=== PATIENT | male | born 1955 | race Caucasian/White ===

== ENCOUNTER 2017-01-04 19:35 | Emergency (ER) | payer OTHER ==
--- NOTE | 2017-01-04 19:54 | EDPHY ---
H & P Stated Complaint: fever, chills, congestion, cough x 2 days Time Seen by Provider: 01/04/17 19:48 HPI/ROS: CHIEF COMPLAINT: Cough, congestion, fevers HISTORY OF PRESENT ILLNESS: Patient is a 61-year-old man with no significant past medical history who comes to the emergency department complaining of a cough, sinus congestion in his nose and forehead, a sore throat and fevers and chills. He started taking a Z-Zion 3 days ago and it has not helped. Also mild bilateral ear pain. No headache. No neck pain REVIEW OF SYSTEMS: Constitutional: denies: chills, fever, recent illness, recent injury EENTM: See HPI Respiratory: See HPI Cardiac: denies: chest pain, irregular heart rate, lightheadedness, palpitations Gastrointestinal/Abdominal: denies: abdominal pain, diarrhea, nausea, vomiting, blood streaked stools Genitourinary: denies: dysuria, frequency, hematuria, pain Musculoskeletal: denies: joint pain, muscle pain Skin: denies: lesions, rash, jaundice, bruising Neurological: denies: headache, numbness, paresthesia, tingling, dizziness, weakness Hematologic/Lymphatic: denies: blood clots, easy bleeding, easy bruising Immunologic/allergic: denies: HIV/AIDS, transplant EXAM: GENERAL: Well-appearing, well-nourished and in no acute distress. HEAD: Atraumatic, normocephalic. EYES: Pupils equal round and reactive to light, extraocular movements intact, sclera anicteric, conjunctiva are normal. ENT: Mild erythema to pharynx, sinus tenderness and congestion, effusions behind bilateral tympanic membranes NECK: Normal range of motion, supple without lymphadenopathy or JVD. LUNGS: Breath sounds clear to auscultation bilaterally and equal. No wheezes rales or rhonchi. HEART: Regular rate and rhythm without murmurs, rubs or gallops. ABDOMEN: Soft, nontender, normoactive bowel sounds. No guarding, no rebound. No masses appreciated. BACK: No CVA tenderness, no spinal tenderness, step-offs or deformities EXTREMITIES: Normal range of motion, no pitting or edema. No clubbing or cyanosis. NEUROLOGICAL: Cranial nerves II through XII grossly intact. Normal speech, normal gait. 5/5 strength, normal movement in all extremities, normal sensation PSYCH: Normal mood, normal affect. SKIN: Warm, dry, normal turgor, no visible rashes or lesions. Source: Patient Exam Limitations: No limitations - Personal History Current Tetanus Diphtheria and Acellular Pertussis (TDAP): Yes - Medical/Surgical History Hx Asthma: No Hx Chronic Respiratory Disease: No Hx Diabetes: No Hx Cardiac Disease: No Hx Renal Disease: No Hx Cirrhosis: No Hx Alcoholism: No Hx HIV/AIDS: No Hx Splenectomy or Spleen Trauma: No Other PMH: HTN - Family History Significant Family History: No pertinent family hx - Social History Smoking Status: Never smoked Alcohol Use: None Drug Use: None Constitutional: Initial Vital Signs Temperature (C) 37 C 01/04/17 19:40 Heart Rate 102 H 01/04/17 19:40 Respiratory Rate 20 01/04/17 19:40 Blood Pressure 169/103 H 01/04/17 19:40 O2 Sat (%) 92 01/04/17 19:40 O2 Delivery Mode Room Air Allergies/Adverse Reactions: No Known Allergies Allergy (Unverified 01/04/17 19:39) Home Medications: Medication Instructions Recorded Atenolol 01/04/17 Azithromycin 01/04/17 Oseltamivir Phosphate [Tamiflu 75 75 mg PO BID #10 cap 01/04/17 mg (*)] Ramipril 01/04/17 Medical Decision Making - Diagnostics Imaging: X-ray: chest x-ray was obtained. I viewed the images myself on the PACS system. My interpretation of the images is: negative for acute disease . The radiologist interpretation is mild airway disease, no pneumonia. ED Course/Re-evaluation: Patient is saturating in the low 90s on room air. He is comfortable. Discussed the x-ray and lab results. He would like to start Tamiflu. His symptoms began about 56 hours ago. We discussed the limitations. He understands. Declines any further workup or testing. Differential Diagnosis: Partial list of the Differential diagnosis considered include but were not limited to; influenza, upper respiratory tract infection, bronchitis, pneumonia and although unlikely based on the history and physical exam, I also considered sepsis, acute coronary disease. I discussed these differential diagnoses and the plan with the patient as well as the usual and expected course. The patient understands that the diagnosis is provisional and that in medicine we are not always correct and that further workup is often warranted. Usual and customary warnings were given. All of the patient's questions were answered. The patient was instructed to return to the emergency department should the symptoms at all worsen or return, otherwise to followup with the physician as we discussed. - Data Points Laboratory Results: 01/04/17 01/04/17 01/04/17 Unknown 19:55 19:50 Influenza Typ A,B (DFA) POSITIVE FOR FLU A H (NEGATIVE) Group A Strep Screen NEGATIVE (NEGATIVE) Group A Strep DNA Pending Medications Given: Discontinued Medications Oseltamivir Phosphate (Tamiflu) 75 mg PO EDNOW ONE Stop: 01/04/17 20:33 Last Admin: 01/04/17 20:41 Dose: 75 mg Departure - Departure Disposition: Home, Routine, Self-Care Clinical Impression: Influenza A Condition: Fair Instructions: Influenza (ED) Referrals: Ambrose Osei MD [Primary Care Provider] - As per Instructions Prescriptions: Oseltamivir Phosphate [Tamiflu 75 mg (*)] 75 mg PO BID #10 cap
[2017-01-04] MEDS ORDERED: OSELTAMIVIR PHOSPHATE 75 MG CAP PO ONE (20:32)
[2017-01-04 20:43] VITALS: BP 129/79; PULSE 89; RESP 18; TEMP 98.6; O2SAT 93
== END 2017-01-04 20:43 | disposition home or self-care (01) ==
DX: J10.1 Influenza due to other identified influenza virus with other respiratory manifestations (principal); I10 Essential (primary) hypertension